=== PATIENT | female | born 1960 | race African-American/Black ===

== ENCOUNTER 2016-08-06 16:48 | Emergency (ER) | payer MEDICARE, MEDICAID ==
[~2016-08-06] VITALS: Ht 167.6 cm; Wt 130.0 kg
[~2016-08-06 16:48] MED LIST: CYMBALTA PO; HYDR-519; NEXIUM PO; RISPERDAL; VALIUM
[2016-08-06 16:55] VITALS: BP 120/82
== END 2016-08-06 18:38 | disposition left against medical advice (07) ==
LOC: ER 17:56
DX: Z53.21 Procedure and treatment not carried out due to patient leaving prior to being seen by health care provider (principal)

== ENCOUNTER 2016-08-24 13:51 | Emergency (ER) | payer MEDICARE, MEDICAID ==
[~2016-08-24] VITALS: Ht 167.6 cm; Wt 110.0 kg
[2016-08-24] MEDS ORDERED: MORPHINE SULFATE 4 MG/ML CPJ (NOT FOR IM USE) IV STA (14:36)
[2016-08-24] MEDS ORDERED: SODIUM CHLORIDE 0.9% 1,000 ML IV ONE (14:36)
[2016-08-24] MEDS ORDERED: ONDANSETRON HCL 4MG/2ML VIAL IV STA (14:36)
[2016-08-24 14:57] LABS: HEMATOCRIT. 30.4 % (36.0-48.0); MEAN CORPUSCULAR HEMOGLOBIN 30.5 pg (28.0-32.0); MEAN CORPUSCULAR VOLUME 93.1 fL (81.0-99.0); MEAN PLATELET VOLUME 7.5 fl (7.4-10.4); PLATELET 284 x1000/uL (130-400); RED BLOOD CELL COUNT 3.27 mill/uL (4.2-5.4); RED CELL DISTRIBUTION WIDTH 15.2 % (11.6-14.6)
[2016-08-24 15:03] LABS: PROTHROMBIN TIME 10.6 sec
[2016-08-24 15:08] LABS: CARBON DIOXIDE 25 mEq/L (21-32); CHLORIDE 111 mEq/L (98-107)
[2016-08-24 15:10] LABS: TROPONIN I < 0.02 ng/mL (0.00-0.04)
[2016-08-24 16:17] LABS: PLATELET ESTIMATE NORMAL
[2016-08-24] MEDS ORDERED: PANTOPRAZOLE SODIUM 40 MG/VIAL IV ONE (17:15)
[2016-08-24 18:49] VITALS: BP 103/55
== END 2016-08-24 18:50 | disposition home or self-care (01) ==
LOC: ER 14:45
DX: K52.9 Noninfective gastroenteritis and colitis, unspecified (principal); I10 Essential (primary) hypertension; E66.01 Morbid (severe) obesity due to excess calories; F15.10 Other stimulant abuse, uncomplicated; Z88.0 Allergy status to penicillin; Z68.39 Body mass index [BMI] 39.0-39.9, adult; Z88.3 Allergy status to other anti-infective agents; Z88.6 Allergy status to analgesic agent
CPT/HCPCS: 36415; 71010; 74176; 80053; 83690; 84484; 85025; 85610; 85730; 93005; 96360; 99285; J7030